=== PATIENT | female | born 1985 | race Caucasian/White ===

== ENCOUNTER 2016-08-30 19:30 | Emergency (ER) | payer OTHER ==
[~2016-08-30] VITALS: Ht 165.1 cm; Wt 68.2 kg
[~2016-08-30 19:30] MED LIST: PREN1TAB80 PO
[2016-08-30] MEDS ORDERED: METHOCARBAMOL 500 MG TABLET PO ONE (21:00)
[2016-08-30] MEDS ORDERED: HYDROCODONE/ACETAMINOPHEN 5-325 MG TABLET PO ONE (21:00)
[2016-08-30] MEDS ORDERED: IBUPROFEN 800 MG TABLET PO ONE (21:00)
[2016-08-30] MEDS ORDERED: PERTUSS(ACELL),DIPH,TET VAC/PF 0.5 ML VIAL IM ONE (21:15)
[2016-08-30] MEDS ORDERED: LIDOCAINE HCL/PF 1% 2 ML VIAL IM ONE (21:30)
[2016-08-30] MEDS ORDERED: CefTRIAXone SODIUM 1 GM/VIAL IM ONE (21:30)
[2016-08-30 21:55] VITALS: BP 111/76
== END 2016-08-30 22:01 | disposition home or self-care (01) ==
LOC: EMS 19:31
DX: L03.113 Cellulitis of right upper limb (principal); M54.5 Low back pain; F17.210 Nicotine dependence, cigarettes, uncomplicated
CPT/HCPCS: 73130; 90471; 90715; 96372; 99284; J0696; J3490

== ENCOUNTER 2016-09-01 18:52 | Emergency (ER) | payer OTHER ==
[~2016-09-01] VITALS: Ht 165.1 cm; Wt 63.6 kg
[2016-09-01] MEDS ORDERED: SULF-168 PO (19:09)
[2016-09-01] MEDS ORDERED: MET500 PO (19:09)
[2016-09-01] MEDS ORDERED: CEPH500 PO (19:09)
[2016-09-01] MEDS ORDERED: IBUP-1547 PO (19:09)
[2016-09-01 20:55] VITALS: BP 124/70
== END 2016-09-01 21:38 | disposition home or self-care (01) ==
LOC: EMS 18:53
DX: S92.512A Displaced fracture of proximal phalanx of left lesser toe(s), initial encounter for closed fracture (principal); F17.210 Nicotine dependence, cigarettes, uncomplicated; V19.88XA Pedal cyclist (driver) (passenger) injured in other specified transport accidents, initial encounter; Y93.89 Activity, other specified; Y92.89 Other specified places as the place of occurrence of the external cause; Y99.8 Other external cause status
CPT/HCPCS: 99284